=== PATIENT | female | born 1945 | race Caucasian/White ===

== ENCOUNTER → 2019-02-07 | Outpatient (CLI) | payer MEDICARE, OTHER | END | disposition home or self-care (01) | LOC: PUL 09:29 | PROVIDERS: ATTEND Nuclear Medicine Nuclear Cardiology | DX: E11.9 Type 2 diabetes mellitus without complications (principal); I10 Essential (primary) hypertension; E78.5 Hyperlipidemia, unspecified; E66.9 Obesity, unspecified; R06.02 Shortness of breath | CPT/HCPCS: 36600; 82803; 94010; 94726; 94729 ==